=== PATIENT | male | born 1975 | race Caucasian/White ===

== ENCOUNTER 2022-01-07 17:11 | Emergency (ER) | payer OTHER ==
[~2022-01-07] VITALS: Ht 182.9 cm; Wt 83.9 kg
== END 2022-01-07 20:56 | disposition home or self-care (01) ==
LOC: ER 17:11
DX: A49.3 Mycoplasma infection, unspecified site (principal); Z20.822 Contact with and (suspected) exposure to COVID-19

== ENCOUNTER 2023-03-29 15:57 | Outpatient (CLI) | payer OTHER | END 2023-03-29 16:02 | disposition home or self-care (01) | LOC: RAD 15:57 | PROVIDERS: ATTEND Physical Medicine & Rehabilitation | DX: S82.201A Unspecified fracture of shaft of right tibia, initial encounter for closed fracture (principal); M25.561 Pain in right knee; Z98.890 Other specified postprocedural states ==